=== PATIENT | female | born 1960 | race Caucasian/White ===

== ENCOUNTER 2020-04-02 15:56 | Emergency (ER) | payer MEDICAID ==
[2020-04-02] MEDS ORDERED: Ketorolac 60 MG/2 ML SDV IM ONE (16:29)
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
--- NOTE | 2020-04-02 17:36 | CR ---
Cervical spine: AP, lateral and odontoid views of the cervical spine were obtained. Comparison: No previous study. Multiple surgical clips are identified within the anterior neck. There is disc space narrowing at C3-4, C4-5, C5-6, and C6-7 as well as posteriorly at C7-T1. Mild scattered anterior endplate osteophytes are seen. Minimal kyphosis is present. No discrete subluxation or fracture is seen. Impression: 1. Diffuse degenerative change as noted above. 2. Mild kyphosis. Diagnostic code #2
--- NOTE | 2020-04-02 17:37 | CR ---
Thoracic spine: AP, lateral and swimmer's view of the thoracic spine were obtained. Diffuse disc space narrowing is seen within the cervical spine. Mild anterior wedge deformity is noted within approximately T11. Mild wedge deformity is also noted within L1. Multiple surgical clips are seen within the abdomen. Mild disc space narrowing is noted within the upper thoracic spine and lower thoracic spine. Minimal scoliosis is noted. Pedicles are intact. No subluxation is appreciated. Impression: 1. Two anterior wedge deformities. MRI would be needed to confirm that these are old. 2. Degenerative change as noted above. 3. Minimal scoliosis. 4. Prior surgery. Diagnostic code #3
--- NOTE | 2020-04-02 17:37 | CR ---
Chest and left ribs: Frontal view of the chest was obtained as well as 2 views left ribs. Comparison: No previous study. Heart size and mediastinum are normal. Slight nodular area of pleural thickening appears to be present within the right upper lung. Lungs otherwise are clear. Multiple surgical clips are seen within the upper abdomen. Surgical clips are also noted within the axillary regions and within the neck. No discrete left-sided rib abnormality is definitely appreciated. Impression: 1. Findings as noted above. 2. Nothing acute is seen on chest x-ray. No discrete left-sided rib abnormality is appreciated. 3. Nonspecific nodular pleural thickening within the right upper chest. Consider chest CT to further evaluate. Diagnostic code #9
--- NOTE | 2020-04-02 17:37 | CT ---
Head CT Technique: Multiple axial sections through the brain were obtained. Intravenous contrast was not utilized. Reconstructed coronal and sagittal images were obtained. Comparison: No prior intracranial imaging is available. Findings: Ventricles along the basal cisterns and sulci over the convexities are moderately prominent. Mild areas of diminished density are noted within the periventricular white matter compatible with small vessel ischemic demyelination change. No other abnormal parenchymal densities are seen. No evidence of intracranial hemorrhage. No midline shift or mass-effect is appreciated. Bone window settings were reviewed. Visualized paranasal sinuses show nothing acute. Visualized mastoid sinuses show nothing acute. There appears to be is a fracture within the superior left orbital rim. Mild soft tissue hematoma noted within the left frontal scalp. Impression: 1. Small soft tissue hematoma within the left frontal scalp. Small fracture within the superior left orbital rim. 2. Senescent change as noted above. 3. Nothing acute is seen intracranially. Diagnostic code #3
--- NOTE | 2020-04-02 17:40 | CT ---
CT facial bones Technique: Multiple axial sections through the facial bones were obtained. Reconstructed coronal and sagittal images were obtained. Findings: Visualized paranasal sinuses show nothing acute. Small fracture is noted within the left superior orbital rim. No additional facial bone fracture is appreciated. Mastoid sinuses are clear. Degenerative change is scattered within the cervical spine. Small soft tissue hematoma is partially seen within the left frontal scalp. Impression: 1. Small nondisplaced fracture within the superior orbital rim on the left side. Small scalp hematoma. 2. Other findings believed to be incidental as noted above. Diagnostic code #3
== END 2020-04-02 19:47 | disposition home or self-care (01) ==
LOC: JD.ED 15:56
DX: S02.85XA Fracture of orbit, unspecified, initial encounter for closed fracture (principal); S22.080A Wedge compression fracture of T11-T12 vertebra, initial encounter for closed fracture; S32.010A Wedge compression fracture of first lumbar vertebra, initial encounter for closed fracture; W19.XXXA Unspecified fall, initial encounter
CPT/HCPCS: 70450; 70486; 71101; 72040; 72072; 96372; 99284; J1885

== ENCOUNTER → 2024-01-14 | Day surgery (SDC) | payer MEDICAID ==
[2024-01-14] MEDS: Polymyxin B/Trimethoprim 10 ML Bottle EYELF SCH (15:03)
[2024-01-14] MEDS: Brimonidine 0.2% Ophth Soln 5 ML Bottle EYELF SCH (15:09)
[2024-01-14] MEDS: Phenylephrine 2.5% Ophth Soln 2 ML Bot EYELF SCH (15:13)
[2024-01-14] MEDS: LORazepam 0.5 MG Tab PO ONE ×2 (15:14→15:17)
[2024-01-14] MEDS: Tropicamide 1% Ophth Soln 3 ML Bottle EYELF SCH (15:28)
[2024-01-14] MEDS: Tetracaine HCl/PF 0.5% 4 ML Bottle EYEBOTH SCH (16:00)
[2024-01-14] MEDS: Lidocaine 1% PF 2 ML SDV INJECT SCH (16:10)
[2024-01-14] MEDS: Cefuroxime 10 MG/ML SYRINGE EYELF SCH (16:23)
[2024-01-14] MEDS: Pilocarpine 4% Ophth Soln 15 ML Bot EYELF SCH (16:24)
== END ==
LOC: JD.SDS 13:30
PROVIDERS: ATTEND Ophthalmology
DX: H25.813 Combined forms of age-related cataract, bilateral (principal); E78.2 Mixed hyperlipidemia; Z87.891 Personal history of nicotine dependence; Z79.899 Other long term (current) drug therapy
CPT/HCPCS: 66984; A9270; J0697; J3490; V2632

== ENCOUNTER 2024-02-11 11:51 | Day surgery (SDC) | payer MEDICAID ==
[~2024-02-11 11:51] MED LIST: Pilocarpine 4% Ophth Soln 15 ML Bot EYERT SCH
[2024-02-11] MEDS: Polymyxin B/Trimethoprim 10 ML Bottle EYERT SCH (12:42)
[2024-02-11] MEDS: Brimonidine 0.2% Ophth Soln 5 ML Bottle EYERT SCH (12:48)
[2024-02-11] MEDS: Phenylephrine 2.5% Ophth Soln 2 ML Bot EYERT SCH (12:52)
[2024-02-11] MEDS: Tropicamide 1% Ophth Soln 3 ML Bottle EYERT SCH (12:58)
[2024-02-11] MEDS: Tetracaine HCl/PF 0.5% 4 ML Bottle EYEBOTH SCH (14:13)
[2024-02-11] MEDS: Lidocaine 1% PF 2 ML SDV INJECT SCH (14:33)
[2024-02-11] MEDS: Cefuroxime 10 MG/ML SYRINGE EYERT SCH (14:53)
== END 2024-02-11 15:02 ==
LOC: JD.SDS 11:51
PROVIDERS: ATTEND Ophthalmology
DX: H25.811 Combined forms of age-related cataract, right eye (principal); H52.31 Anisometropia; H17.9 Unspecified corneal scar and opacity; H16.103 Unspecified superficial keratitis, bilateral; H16.223 Keratoconjunctivitis sicca, not specified as Sjogren's, bilateral; H02.831 Dermatochalasis of right upper eyelid; H02.834 Dermatochalasis of left upper eyelid; E78.2 Mixed hyperlipidemia; Z87.891 Personal history of nicotine dependence
CPT/HCPCS: 66984; A9270; 00142; J3490; V2632